=== PATIENT | female | born 1995 | race African-American/Black ===

== ENCOUNTER 2021-03-26 20:36 | Inpatient (IN) | payer SELFPAY ==
[2021-03-26 21:05] VITALS: BMI 28.3
[2021-03-26] MEDS ORDERED: hydrALAZINE 20 MG/ML VIAL SLOW IVP PRN (21:12)
[2021-03-26] MEDS ORDERED: Lactated Ringer's 1,000 ML IV SCH ×2 (21:45→23:45)
[2021-03-26 22:31] LABS: Fetal Membranes Rupture No Membranes Rupture (No Rupture)
[2021-03-26 23:40] LABS: FFN Internal QC Analyzer PASS (PASS); FFN Internal QC Cassette PASS (PASS); Fetal Fibronectin Negative (Negative)
[2021-03-27] MEDS ORDERED: Acetaminophen 500 MG TAB PO PRN (01:51)
[2021-03-27] MEDS ORDERED: Docusate 100 MG CAP PO PRN (01:51)
[2021-03-27] MEDS ORDERED: Ondansetron PF 4 MG/2 ML Vial IVP PRN (01:51)
[2021-03-27] MEDS ORDERED: Promethazine HCl 25 MG/ML VIAL IM PRN (01:51)
[2021-03-27] MEDS ORDERED: hydrALAZINE 20 MG/ML VIAL SLOW IVP PRN (01:51)
[2021-03-27] MEDS ORDERED: Lactated Ringer's 1,000 ML IV SCH (02:00)
[2021-03-27] MEDS ORDERED: NIFEdipine 10 MG CAP PO PRN (02:00)
[2021-03-27] MEDS ORDERED: NIFEdipine 10 MG CAP PO SCH (02:00)
[2021-03-27] MEDS: NIFEdipine 10 MG CAP PO SCH ×2 (03:02→03:44)
[2021-03-27 03:28] LABS: SARS-CoV-2 NAA Rapid Test Not Detected (NotDetected)
== END 2021-03-27 09:10 | disposition home or self-care (01) | DRG 833 ==
LOC: CSHLD/OP 20:36 → CSHLD 03-27 02:14
PROVIDERS: ADMIT Student in an Organized Health Care Education/Training Program; ATTEND Student in an Organized Health Care Education/Training Program
DX: O60.02 Preterm labor without delivery, second trimester (principal); Z3A.25 25 weeks gestation of pregnancy
CPT/HCPCS: 82731; 84112; 87480; 87510; 87660; 99285; U0002